=== PATIENT | male | born 1985 | race Caucasian/White ===

== ENCOUNTER 2021-04-03 08:00 | Outpatient (CLI) | payer OTHER | END 2021-04-03 23:59 | LOC: LAB.N 08:00 | PROVIDERS: ATTEND Physician Assistant | DX: R07.0 Pain in throat (principal); Z20.822 Contact with and (suspected) exposure to COVID-19 | CPT/HCPCS: 87070 ==

== ENCOUNTER 2022-07-23 11:42 | Emergency (ER) | payer OTHER ==
[2022-07-23 12:03] VITALS: BP 135/73
[2022-07-23] MEDS ORDERED: BACITRACIN ZINC OINT 1 PACKET TOP STA (13:40)
--- NOTE | 2022-07-23 13:42 | ED Physician Documentation ---
PD HPI SKIN - Stated complaint Stated Complaint: RT THUMB LAC - Chief complaint Chief Complaint: Laceration - History obtained from History obtained from: Patient - Additional information Additional information: PT comes to the ED for CC of R thumb lac after thumb was caught in a door. The pt states it was only the edge of his thumb next to his nail that was injured, and that he does not feel that he has a bony injury or a joint injury. Tetanus within 10 years. No other complaints at this time. PD PAST MEDICAL HISTORY - Allergies Allergies/Adverse Reactions: Allergies Allergy/AdvReac Type Severity Reaction Status Date / Time No Known Drug Allergies Allergy Verified 07/23/22 12:01 PD ED PE NORMAL - Vitals Vital signs reviewed: Yes - General General: Alert and oriented X 3, No acute distress, Well developed/nourished - HEENT HEENT: Atraumatic, PERRL, EOMI, Moist mucous membranes - Neck Neck: Supple, no meningeal sign - Cardiac Cardiac: Strong equal pulses - Respiratory Respiratory: No respiratory distress - Derm Derm: Normal color, Warm and dry, No rash, Other (2 cm laceration adjacent to R thumbnail, irregular, 3 mm depth. No FB. No nail or nailbed involvement.) - Extremities Extremities: No deformity - Neuro Neuro: Alert and oriented X 3 - Psych Psych: Normal mood, Normal affect Results - Vitals Vitals: Vital Signs - 24 hr 07/23/22 11:58 Temperature 36.6 C Heart Rate 78 Respiratory 16 Rate Blood Pressure 135/73 H O2 Saturation 98 Oxygen O2 Source Room air Procedures - Laceration (location) R thumb Length in cm: 2 Wound type: Irregular, Into subcut fat, Clean Neurovascular status: Sensory intact, Motor intact, Vascular intact Anesthesia: Lidocaine 1% Wound preparation: Hibiclens, Irrigated copiously NS, Wound explored, To the base, debridement of wound edges (traumatic laceration/avulsion) Skin layer closure: Nylon, Interrupted, Size #-0 - enter number (5.0), Sutures - enter # (3) Other: Patient tolerated well, No complications, Neurovascular intact, Dressing applied, Tetanus UTD PD Medical Decision Making - ED course Complexity details: considered differential, d/w patient ED course: Laceration repaired as above. Wound care at home, timeline for suture removal, and signs of infection discussed. Departure - Departure Disposition: Home, Self Care Clinical Impression: Laceration Condition: Stable Instructions: ED Laceration Ext Sutr Stap Tape Comments: Your wound was closed with 3 nonabsorbable sutures today. Synthetic sutures must be removed and should be removed by a medical professional in 7 days. You may go to the walk-in clinic or the [facility] for this. If you need cannot be seen in either these venues, you may return here. Please keep the wound clean and generally dry. You may let water and soap run over the wound but please do not rub, scrub, or immerse the wound until sutures are removed. If you begin to notice redness or swelling spreading progressively away from the wound, or if it has been dry but then becomes "mushy" and begins to drain, you should have it rechecked. Discharge Date/Time: 07/23/22 14:01
== END 2022-07-23 14:01 | disposition home or self-care (01) ==
LOC: ED 11:42
DX: S61.011A Laceration without foreign body of right thumb without damage to nail, initial encounter (principal); W23.1XXA Caught, crushed, jammed, or pinched between stationary objects, initial encounter
CPT/HCPCS: 12001; 99282; A9270